=== PATIENT | male | born 1950 | race Caucasian/White ===

== ENCOUNTER 2018-02-18 11:15 | Emergency (ER) | payer OTHER ==
--- NOTE | 2018-02-18 11:35 | EDPHY ---
H & P Stated Complaint: COLD/COUG EARS /SINUS PRESSURE X 2 WEEKS DEVELOPED DIZZYNESS N /V Time Seen by Provider: 02/18/18 11:34 - Personal History Current Tetanus Diphtheria and Acellular Pertussis (TDAP): Yes Tetanus Vaccine Date: within 10 yrs - Medical/Surgical History Hx Asthma: No Hx Chronic Respiratory Disease: No Hx Diabetes: No Hx Cardiac Disease: No Hx Renal Disease: No Hx Cirrhosis: No Hx Alcoholism: No Hx HIV/AIDS: No Hx Splenectomy or Spleen Trauma: No Other PMH: appy - Social History Smoking Status: Never smoked Constitutional: Initial Vital Signs Temperature (C) 36.5 C 02/18/18 11:24 Heart Rate 61 02/18/18 11:24 Respiratory Rate 18 02/18/18 11:24 Blood Pressure 157/95 H 02/18/18 11:24 O2 Sat (%) 97 02/18/18 11:24 O2 Delivery Mode Room Air Allergies/Adverse Reactions: No Known Allergies Allergy (Verified 02/18/18 11:22) Home Medications: Medication Instructions Recorded Albuterol [Proventil Inhaler] 1 - 2 puffs IH Q4 #1 mdi 02/18/18 Azithromycin [Zithromax] 250 mg PO DAILY #6 tab 02/18/18 HYDROcodone/HOMATROPINE HYCODA 1 tsp PO Q4-6PRN PRN #120 ml 02/18/18 [Hycodan Syrup (RX)] predniSONE 40 mg PO DAILY #10 tab 02/18/18 Medical Decision Making - Diagnostics Imaging: I viewed and interpreted images myself ED Course/Re-evaluation: CHIEF COMPLAINT: Nausea, vomiting, dizzy HISTORY OF PRESENT ILLNESS: The patient is a 67 y/o male complaining of nausea, vomiting, dizziness, and an abnormal sensation in his chest. For the past two weeks he has had a cold including a cough, sore throat, sinus pressure, and post-nasal drainage. These symptoms started after returning home from [place]. He was taking Nyquil for his symptoms. For the last several days he thought he was getting better as he had more energy. However, last night he had another coughing attack. This morning he took his dog for a walk and subsequently felt dizzy and nauseous. He then lied down for an hour and began to feel better. After standing up and walking around the house he became nauseous again, vomited, and developed an abnormal sensation in his chest. Currently he is not nauseous and states that he is hungry. He denies headache, shortness of breath, abdominal pain, urinary or bowel complaints, numbness, paresthesias, fevers. REVIEW OF SYSTEMS: A comprehensive 10 system review of systems is otherwise negative aside from elements mentioned in the history of present illness and medical decision making. PHYSICAL EXAM: HR, BP, O2 Sat, RR. Temp noted General Appearance: Alert, well hydrated, appropriate, and non-toxic appearing. Head: Atraumatic without scalp tenderness or obvious injury Eyes: Pupils equal, round, reactive to light and accommodation, EOMI, no trauma , no injection. Ears: Clear bilaterally, no perforation, normal landmarks Nose: Atraumatic, no rhinorrhea, clear. Throat: Erythematic throat. There is no exudates, no lesions, normal tonsils, mucus membranes moist. Neck: Supple, nontender, no lymphadenopathy. Respiratory: No retractions, no distress, no wheezes, and no accessory muscle use. Lungs are clear to auscultation bilaterally. Cardiovascular: Regular rate and rhythm, no murmurs, rubs, or gallops. Bilateral carotid, radial, dorsalis pedis, and posterior tibial pulses intact. Good capillary refill all extremities. Gastrointestinal: Abdomen is soft, nontender, non-distended, no masses, no rebound, no guarding, no peritoneal signs. Musculoskeletal: Normal active ROM of all extremities, atraumatic. Neurological: Alert, appropriate, and interactive. The patient has normal DTRs and non-focal cranial nerves, motor, sensory, and cerebellar exam. Skin: No rashes, good turgor, no nodules on palpation. Past medical history: Denies Past surgical history: Appendectomy Family history: Denies Social history: at bedside, lives in [place], retired DIAGNOSTICS/PROCEDURES/CRITICAL CARE TIME: EKG: The 12 lead EKG was interpreted by myself as sinus rhythm with a rate of 60 , left ventricular hypertrophy, isolated inverted T-wave in inferior lead. This EKG is similar to a prior EKG on 01/25/15. See hard copy and/or "[email or web address]" electronic copy for interpretation. Chest X-ray: Bronchitis DIFFERENTIAL DIAGNOSIS: The differential diagnosis for the patient's dizziness and cough included but was not limited to acute bronchitis, peripheral and central causes of vertigo, orthostatic causes including dehydration, cardiogenic and neurogenic causes, and blood loss. MEDICAL DECISION MAKING: The patient is a 67 y/o male presenting with nausea, vomiting, dizziness, and an abnormal sensation in his chest. He is no longer nauseous or dizzy. On exam he has an erythematic throat, but he has an otherwise normal physical exam. EKG , chest x-ray, and labs ordered; 500mL IV NS administered. He does not meet sepsis criteria. 1144: I interpreted patient's EKG as a sinus rhythm with a rate of 60. 1202: Patient's chest x-ray reveals bronchitis; radiologist reading still pending 1257: Patient's labs are unremarkable; his symptoms are consistent with acute bronchitis. 1258: Reassessed patient and discussed laboratory and imaging findings. I have prescribed him a Z-pack, Proventil inhaler, Hycodan elixir, and Prednisone. Return precautions provided; patient is comfortable with this plan. - Data Points Laboratory Results: Laboratory Results 02/18/18 12:01 02/18/18 12:01 02/18/18 02/18/18 02/18/18 12:10 12:01 12:01 WBC RBC Hgb Hct MCV MCH MCHC RDW Plt Count MPV Neut % (Auto) Lymph % (Auto) [place] % (Auto) Eos % (Auto) Baso % (Auto) Nucleat RBC Rel Count Absolute Neuts (auto) Absolute Lymphs (auto) Absolute Monos (auto) Absolute Eos (auto) Absolute Basos (auto) Absolute Nucleated RBC Immature Gran % Immature Gran # D-Dimer 0.50 ug/mLFEU ug/mLFEU (0.00-0.50) Sodium 140 mEq/L mEq/L (135-145) Potassium 4.4 mEq/L mEq/L (3.3-5.0) Chloride 107 mEq/L mEq/L (97-110) Carbon Dioxide 24 mEq/l mEq/l (22-31) Anion Gap 9 mEq/L mEq/L (8-16) BUN 19 mg/dL mg/dL (7-23) Creatinine 0.9 mg/dL mg/dL (0.7-1.3) Estimated GFR > 60 Glucose 103 mg/dL H mg/dL (70-100) Calcium 9.2 mg/dL mg/dL (8.5-10.4) POC Troponin I 0.03 ng/mL ng/mL (0.00-0.08) NT-Pro-B Natriuret Pep 30 pg/mL pg/mL (0-125) 02/18/18 12:01 WBC 6.82 10^3/uL 10^3/uL (3.80-9.50) RBC 4.49 10^6/uL 10^6/uL (4.40-6.38) Hgb 15.3 g/dL g/dL (13.7-17.5) Hct 41.7 % % (40.0-51.0) MCV 92.9 fL fL (81.5-99.8) MCH 34.1 pg pg (27.9-34.1) MCHC 36.7 g/dL g/dL (32.4-36.7) RDW 11.4 % L % (11.5-15.2) Plt Count 167 10^3/uL 10^3/uL (150-400) MPV 10.0 fL fL (8.7-11.7) Neut % (Auto) 71.2 % % (39.3-74.2) Lymph % (Auto) 17.3 % % (15.0-45.0) [place] % (Auto) 8.4 % % (4.5-13.0) Eos % (Auto) 2.2 % % (0.6-7.6) Baso % (Auto) 0.3 % % (0.3-1.7) Nucleat RBC Rel Count 0.0 % % (0.0-0.2) Absolute Neuts (auto) 4.86 10^3/uL 10^3/uL (1.70-6.50) Absolute Lymphs (auto) 1.18 10^3/uL 10^3/uL (1.00-3.00) Absolute Monos (auto) 0.57 10^3/uL 10^3/uL (0.30-0.80) Absolute Eos (auto) 0.15 10^3/uL 10^3/uL (0.03-0.40) Absolute Basos (auto) 0.02 10^3/uL 10^3/uL (0.02-0.10) Absolute Nucleated RBC 0.00 10^3/uL 10^3/uL (0-0.01) Immature Gran % 0.6 % % (0.0-1.1) Immature Gran # 0.04 10^3/uL 10^3/uL (0.00-0.10) D-Dimer Sodium Potassium Chloride Carbon Dioxide Anion Gap BUN Creatinine Estimated GFR Glucose Calcium POC Troponin I NT-Pro-B Natriuret Pep Medications Given: Discontinued Medications Sodium Chloride (Ns) 500 mls @ 1,000 mls/hr IV EDNOW ONE PRN Reason: Protocol Stop: 02/18/18 12:11 Last Admin: 02/18/18 12:03 Dose: 500 mls Point of Care Test Results: Chemistry 02/18/18 12:10 POC Troponin I 0.03 ng/mL ng/mL (0.00-0.08) Departure - Departure Disposition: Home, Routine, Self-Care Clinical Impression: Acute bronchitis Qualifiers: Bronchitis organism: other organism Qualified Code(s): J20.8 - Acute bronchitis due to other specified organisms Condition: Good Instructions: Acute Bronchitis (ED) Additional Instructions: 1. Take the Z-pack as prescribed. 2. Use the Proventil inhaler as prescribed. 3. Take Hycodan elixer as prescribed 4. Take Prednisone as prescribed. 5. Follow-up with your primary doctor within 72 hours. 6. Return to the Emergency Department for fever, chest pain, shortness of breath , increasing pain or other worsening of condition. Referrals: Sami Peralta MD [Primary Care Provider] - As per Instructions Prescriptions: Albuterol [Proventil Inhaler] 1 - 2 puffs IH Q4 #1 mdi Azithromycin [Zithromax] 250 mg PO DAILY #6 tab HYDROcodone/HOMATROPINE HYCODA [Hycodan Syrup (RX)] 1 tsp PO Q4-6PRN PRN #120 ml PRN Reason: Cough, Moderate predniSONE 40 mg PO DAILY #10 tab Report Scribed for: Raman Smith Report Scribed by: Delfina Hunt Date of Report: 02/18/18 Time of Report: 11:36
[2018-02-18] MEDS ORDERED: NS 500 ML IV ONE (11:42)
--- NOTE | 2018-02-18 11:54 | CPEKG ---
Test Reason : OPEN Blood Pressure : / mmHG Vent. Rate : 060 BPM Atrial Rate : 060 BPM P-R Int : 163 ms QRS Dur : 122 ms QT Int : 464 ms P-R-T Axes : 027 -14 -07 degrees QTc Int : 464 ms Sinus rhythm Left ventricular hypertrophy Borderline T abnormalities, inferior leads Confirmed by Raman Smith [id number] on 02/18/2018 11:53:42 AM Referred By: Confirmed By:Raman Smith
[2018-02-18 12:17] LABS: PLATELET COUNT 167 10^3/uL (150-400)
[2018-02-18 13:16] VITALS: BP 143/87
== END 2018-02-18 13:15 | disposition home or self-care (01) ==
DX: J20.9 Acute bronchitis, unspecified (principal)
CPT/HCPCS: 84484-PO